=== PATIENT | female | born 1980 | race Hispanic/Latino ===

== ENCOUNTER 2024-11-17 21:42 | Emergency (ER) | payer SELFPAY ==
[2024-11-17 21:53] VITALS: BP 130/87
[2024-11-17] MEDS: TYLENOL 650 MG PO (22:02)
[2024-11-17 22:28] LABS: Hematocrit 34.2 % (37.0-47.0); Hemoglobin 11.2 g/dL (12.0-16.0); Mean Corp Hgb Conc. 32.7 g/dL (33.0-37.0); Mean Corpuscular Volume 82.6 fL (81.0-99.0); Nucleated Red Blood Cells % 0 %; Platelet Count 238 10^3/uL (130-400); Red Cell Dist. Width 15.5 % (11.5-14.5)
[2024-11-17 22:29] LABS: Urine Character Slightly Cloudy (Clear)
[2024-11-17 22:35] LABS: Urine Squamous Cell >30 /LPF (Few)
[2024-11-17 22:36] LABS: Urine White Cell 80-90 /HPF (0-5)
[2024-11-17 22:42] LABS: COVID-19 Antigen Negative (Negative)
[2024-11-17 22:51] LABS: ALT (SGPT) 15 U/L (0-35); AST (SGOT) 18 U/L (14-36); Albumin 4.0 g/dl (3.5-5.0); Alkaline Phosphatase 79 U/L (38-126); Blood Urea Nitrogen 14 mg/dl (7-17); Calcium 9.1 mg/dl (8.4-10.2); Carbon Dioxide 18 mmol/L (22-30); Chloride 108 mmol/L (98-107); Glucose 121 mg/dl (70-99); Lipase 42 U/L (23-300); Potassium 3.9 mmol/L (3.5-5.1); Sodium 138 mmol/L (135-145); Total Protein 7.5 g/dl (6.3-8.2); eGFR > 60.00
[2024-11-18] VITALS (7 sets, daily range): BP systolic 72–93; BP diastolic 47–65
--- NOTE | 2024-11-18 02:30 | ED.GENMED ---
History of Present Illness
General
Chief Complaint: Fever
Source: patient and family
Exam Limitations: other (Patient is primarily [place]-speaking. Family member is assisting with translation.)
Time Seen by Provider: 11/18/24 02:18
Nursing documentation reviewed up to this point in time: agreed with
History of Present Illness
History of Present Illness:
This is a 44-year-old Citizen [place]-speaking woman who presents with 3-day history of fever, generalized low back ache, left flank pain, left lower quadrant to lower abdominal discomfort. She also notes some urinary frequency and intermittent dysuria.
She denies cough nor chest pain or shortness of breath. No nausea or vomiting. No diarrhea or constipation. No history of similar episodes in the past.
Last menstrual period November 07.
She takes no medicines on a daily basis.
No aggravating or relieving factors. She has not been taking anything for her symptoms.
Upon arrival to the ED noted to be febrile 103.2 �F. She was given Tylenol 650 mg at 10 PM.
Currently afebrile.
Past History
Past History
ED Past Medical History: Other (Low blood pressure)
ED Past Surgical History:
Social History
Tobacco: Non-smoker
Alcohol: Occasional
Drug: None
Living: with family
Employment: Employed
Family History
Family History: Other (Noncontributory)
Phy Exam
Physical Exam
Physical Exam:
GENERAL: 44-year-old woman appears her stated age, awake and alert, pleasant, appears in no acute distress.
EYE: pupils equal and reactive. anicteric
NECK: Supple, nontender, no meningismus, no significant adenopathy.
ENT: posterior pharynx is clear, oral mucosa is moist. No rhinorrhea.
CARDIAC: Regular rate and rhythm. no murmur.
LUNGS: Clear breath sounds bilaterally, no acute respiratory distress, no wheezes/rales/rhonchi
ABDOMEN: Soft, nondistended, mild tenderness left lower quadrant, suprapubic, left upper lateral quadrant, no r/g, mild left CVA tenderness with percussion. Normoactive BS.
NEUROLOGICAL: Alert and oriented x3, no focal neuro deficits. Gait is steady.
SKIN: Warm and dry, normal color, skin intact. No rash.
MUSCULOSKELETAL: No C/C/E. peripheral pulses are full and equal b/l. No palpable tenderness.
PSYCH: Normal and appropriate interaction.
Sepsis
Sepsis Screening
Sepsis Assessment: Sepsis Ruled Out
Sepsis Screen
Sepsis Screen: Sepsis Ruled Out
Date: 11/18/24
Time: 07:11
Course
Orders/Labs/Results
Orders:
Orders
11/17/24 21:59
Acetaminophen [Tylenol] 650 mg .ROUTE .STK-MED ONE
11/17/24 22:01
Acetaminophen [Tylenol] 650 mg PO NOW STA
11/17/24 22:11
COVID-19 Antigen Urgent
Source: Nasal Swab
Complete Blood Count/With Diff Urgent
Comprehensive Metabolic Panel Urgent
HCG, Serum Qualitative Screen Urgent
Comment: ADDED
Lactic Acid Urgent
Lipase Urgent
Urinalysis Reflex To Culture Urgent
Date Specimen was Collected: 11/17/24
Time Specimen was Collected: 21:58
Urine Microscopic Reflex Cult Urgent
Blood Culture Urgent
NAHED Source: Blood/Venous
Specimen Description:
Date Specimen was Collected: 11/17/24
Time Specimen was Collected: 21:58
Influenza A+B Rapid Molecular Urgent
NAHED Source: Nasal Swab
Specimen Description:
Date Specimen was Collected: 11/17/24
Time Specimen was Collected: 21:58
Urine Culture Urgent
NAHED Source: U
Specimen Description:
Date Specimen was Collected: 11/17/24
Time Specimen was Collected: 21:58
11/18/24 02:29
CT Abd/pelvis W Iv Cont Urgent
Comment:
Reason For Exam: LLQ, L flank pain, fever
0.9% Sodium Chloride 1000 ml [Nss] 1,000 ml IV BOLUS
CefTRIAXone [Rocephin] 2,000 mg IV NOW STA
11/18/24 02:40
Add On- LAB Urgent
Tests Added?: qual serum HCG
Abnormal Lab Results
11/17/24
22:11
RBC 4.14 L 10^6/uL
(4.20-5.40)
Hgb 11.2 L g/dL
(12.0-16.0)
Hct 34.2 L %
(37.0-47.0)
MCHC 32.7 L g/dL
(33.0-37.0)
RDW 15.5 H %
(11.5-14.5)
Abs Immat Gran (auto) 0.1 H 10^3/uL
(0-0.05)
Absolute Neuts (auto) 7.4 H 10^3/uL
(1.4-6.5)
Absolute Lymphs (auto) 0.6 L 10^3/uL
(1.2-3.4)
Immature Gran % 0.9 H %
(0-0.5)
Neutrophils % 82.9 H %
(42.2-75.2)
Lymphocytes % 7.0 L %
(20.5-51.1)
Chloride 108 H mmol/L
(98-107)
Carbon Dioxide 18 L mmol/L
(22-30)
Glucose 121 H mg/dl
(70-99)
Urine Ketones 3+ A
(Negative)
Ur Occult Blood Reflex 3+ A
(Negative)
Leukocyte Esterase Rfl 2+ A
(Negative)
Urine RBC 7-10 A /HPF
(0-2)
Urine WBC (Reflex) 80-90 A /HPF
(0-5)
Urine Bacteria (Reflex) Moderate A
(Negative)
Urine Albumin (Reflex) 3+ A
(Neg - Trace)
11/17/24 22:11
11/17/24 22:11
Vital Signs
Temp: 98.5 F
Initial and Last Documented VS:
Initial Vital Signs
Temp Pulse Resp BP Pulse Ox
103.2 F H 128 18 130/87 95
11/17/24 21:53 11/17/24 21:53 11/17/24 21:53 11/17/24 21:53 11/17/24 21:53
Last Documented Vital Signs
Temp Pulse Resp BP Pulse Ox
98.5 F 74 17 93/60 97
11/18/24 02:36 11/18/24 03:53 11/18/24 03:53 11/18/24 05:00 11/18/24 05:30
MDM/Problems Addressed
Differential Diagnosis Includes:
Concern for UTI/pyelonephritis, ureteral stone, diverticulitis, colitis, other consideration is appendicitis, small bowel obstruction however much less likely.
Urinalysis concerning for UTI and with left flank pain concern for pyelonephritis.
Labs are reassuring with normal white blood cell count. Unremarkable chemistries. Normal lactic acid.
Normotensive initially, along with tachycardia and fever. Fever has since dissipated, tachycardia has resolved and patient noted to be mildly hypotensive. She denies dizziness nor lightheadedness and has been ambulatory to the bathroom without
difficulty. She has history of low blood pressure and this may be her baseline.
Reassuring that white blood count and lactic acid are normal.
The abdomen and pelvis, initiate IV fluids and give IV dose of Rocephin for what I suspect is pyelonephritis.
*Radiology
Radiology exam reviewed: radiology read reviewed
*Pulse Oximetry
SaO2: 96
Oxygen Mode of Delivery: Room air
Patient hypoxic: no
*Critical Care Note
Total Time (30-74mins, 75-104mins- exclusive of procedures): Not Applicable
Update Note
Update Note:
05:30
Patient continues to appear comfortable. She remains afebrile.
Blood pressure has improved after IV fluids /59. No tachycardia. No orthostasis.
CAT scan concerning for mild pyelonephritis but no evidence of abscess.
Will discharge to home with 10-day course of Augmentin.
Discussed importance of staying well-hydrated.
Continue Tylenol versus ibuprofen as needed for fever, aches.
Will refer to our free clinic for follow-up.
ED Attending Note
-
Portions of this chart may have been created with voice recognition software.� Occasional wrong word or��sound alike� substitutions may have occurred due to the inherent limitations of voice recognition software.
Discharge Plan
Departure
Patient Disposition: Home (Routine Discharge)
Date of Disposition: 11/18/24
Time of Disposition: 05:29
Patient with high blood pressure during this ER visit?: No
Condition: Good
Discharge Problem:
Acute pyelonephritis
Instructions: Urinary tract infection in adults - ED discharge instructions
Prescriptions:
New
amoxicillin-pot clavulanate 875-125 mg tablet
1 tab PO BID Qty: 20 0RF
Referrals:
[facility] [[facility]] - Call in 1-3 days for appt
NONE,* [Family Provider, Internal Medicine]
Interventions
Interventions:
*Risk Screen - Suicide Last Done: 11/18/24 00:38
*General Assessment Last Done: 11/18/24 00:38
*Neglect/Abuse Screening Last Done: 11/18/24 00:38
*ED- Fall Risk Assessment Last Done: 11/18/24 00:38
*ED COVID-19 Vaccine History Last Done: 11/18/24 00:38
*Nursing Disposition Last Done: 11/18/24 05:37
ED- Neurological Assessment Last Done: 11/18/24 00:38
ED-Skin Assessment Last Done: 11/18/24 00:38
Discharge Date and Time
Discharge Date/Time: 11/18/24 05:45
Print Language: TUNISIAN
[2024-11-18] MEDS: ROCEPHIN 2000 MG IV (02:37)
[2024-11-18] MEDS: NSS 1000 IV (02:43)
[2024-11-18 03:18] LABS: HCG, Serum Qualitative Screen Negative
== END 2024-11-18 05:45 | disposition home or self-care (01) ==
LOC: EMR 21:42
PROVIDERS: Student in an Organized Health Care Education/Training Program; EMERGENCY PHYSICIAN Emergency Medicine
DX: N10 Acute pyelonephritis (principal); Z11.52 Encounter for screening for COVID-19
CPT/HCPCS: 99285; 96374; 96361; 74177; 80053; 81003; 81015; 83605; 83690; 84703; 85025; 87040; 87077; 87086; 87186; 87502; 87811; Q9967